=== PATIENT | male | born 1960 | race Caucasian/White ===

== ENCOUNTER 2017-07-02 21:21 | Inpatient (IN) | payer OTHER ==
[~2017-07-02] VITALS: Ht 177.8 cm; Wt 100.8 kg
[~2017-07-02 21:21] MED LIST: ALBUTEROL INH; ALPR1TAB2 PO; CLOP1TAB15 PO; DIAZ-165 PO; EPP3/2 IM; LEVAAER2 INH; LOSA50TA6 PO; OMEP40CA41 PO; OXYC-609 PO; SUMA100T16 PO; ZOLP10TA PO
[2017-07-02] MEDS ORDERED: SODIUM CHLORIDE 0.9% 1000ML 1,000 ML IV SCH (21:26)
[2017-07-02 21:39] LABS: BASO % 0.5 %; BASO ABS # 0.03 K/uL (0-0.2); COMPLETE YES; EOS % 1.2 %; HEMATOCRIT 46.9 % (42-52); IG% 0.3 %; LYMPH % 30.2 %; LYMPH ABS # 1.73 K/uL (1.2-3.4); MEAN CELL VOLUME 95.7 fL (80-100); MEAN CORPUSCULAR HEMOGLOBIN 34.1 pg (25-34); MEAN CORPUSCULAR HGB CONC 35.6 g/dl (32-36); MEAN PLATELET VOLUME 9.3 fL (7.4-10.4); MONO % 7.9 %; NEUT % 59.9 %; PLATELET COUNT 260 K/uL (130-400); WHITE BLOOD COUNT 5.72 K/uL (4.8-10.8)
--- NOTE | 2017-07-02 21:41 | DIAGNOSTIC IMAGING REPORT ---
CT HEAD WITHOUT CONTRAST (CT) CLINICAL HISTORY: Acute stroke. COMPARISON STUDY: 12/24/2015 TECHNIQUE: Axial CT of the brain is performed from the vertex to the skull base. IV contrast was not administered for this examination. A dose lowering technique was utilized adhering to the principles of ALARA. CT DOSE: 823.94 mGycm FINDINGS: No intra or extra-axial mass lesions are visualized. There is no CT evidence of acute cortical infarction. There is no evidence of midline shift. There is no acute hemorrhage. No calvarial fractures are visualized. There are patchy white matter hypodensities likely on a small vessel basis. There is no evidence of pathologic ventricular dilatation. There is no evidence of acute sinusitis IMPRESSION: No acute intracranial findings Electronically signed by: Emiliano Barros M.D. 07/02/2017 9:39 PM Dictated Date/Time: 07/02/2017 9:38 PM
[2017-07-02] MEDS ORDERED: PANT40TA PO (21:45)
[2017-07-02] MEDS ORDERED: VNTHFA/IN INH (21:45)
[2017-07-02] MEDS ORDERED: OXYC1TAB3 PO (21:45)
[2017-07-02 21:46] LABS: ISTAT CREATININE 1.4 mg/dl (0.6-1.3); ISTAT HEMOGLOBIN 16.3 g/dl (14.0-18.0); ISTAT IONIZED CALCIUM 1.12 mmol/l (1.12-1.32)
[2017-07-02 21:50] LABS: INR 0.9 (0.9-1.1); PROTHROMBIN TIME (PATIENT) 10.1 SECONDS (9.0-12.0)
--- NOTE | 2017-07-02 21:53 | DIAGNOSTIC IMAGING REPORT ---
CHEST ONE VIEW PORTABLE CLINICAL HISTORY: Stroke COMPARISON STUDY: 12/24/2015 FINDINGS: The cardiac and mediastinal contours remain stable. There is mild chronic interstitial thickening. There is no failure. There is no lobar consolidation. There is stable prominence of the right paratracheal soft tissues.[ IMPRESSION: Stable mild prominence of the right paratracheal soft tissues. No evidence of acute parenchymal consolidation. No evidence of failure. Electronically signed by: Emiliano Barros M.D. 07/02/2017 9:52 PM Dictated Date/Time: 07/02/2017 9:51 PM
[2017-07-02 22:12] LABS: BLOOD UREA NITROGEN 11 mg/dl (7-18); BUN/CREATININE RATIO 9.4 (10-20); CARBON DIOXIDE 27 mmol/L (21-32); CHLORIDE 100 mmol/L (98-107); POTASSIUM 3.7 mmol/L (3.5-5.1); SODIUM 137 mmol/L (136-145)
[2017-07-02 22:32] LABS: GLUCOSE 125 mg/dl (70-99)
[2017-07-02] MEDS ORDERED: MoRPHine SULFATE 10 MG/ML CARP/VIAL IV STA (22:49)
[2017-07-02] MEDS ORDERED: ONDANSETRON INJ 2 MG/ML 2 ML VIAL IV STA (22:49)
[2017-07-02 23:14] LABS: MAGNESIUM 2.2 mg/dl (1.8-2.4)
--- NOTE | 2017-07-03 00:51 | EMERGENCY ROOM VISIT NOTE ---
History Report prepared by Efren: Kelly Gan Under the Supervision of: Dr. Marcelo Acevedo D.O. First contact with patient: 21:23 Chief Complaint: STROKE SYMPTOMS Stated Complaint: STROKE SX History of Present Illness The patient is a 56 year old male who presents to the Emergency Room with complaints of possible stroke symptoms. He is accompanied by his . His reports she was making dinner this evening around 1949 when the patient told her he didn't feel well and could not eat. She left the house briefly to take their son dinner a few blocks away. When she returned home, around 2029, the patient was sitting in an arm chair with his eyes open. He started tapping the arm chair to get her attention, so she told him she was going to call an ambulance to bring him to [facility], but he refused and asked her to take him here to [facility]. The patient's reports he has a history of a previous CVA and takes daily blood thinners. His neurologist is Dr. Narayan with [facility]. The patient is currently complaining of left sided weakness. He does complain of a headache to staff. Source of History: patient, spouse/significant other () Onset: 1949 today Position: other (global) Timing: constant Associated Symptoms: + weakness (left sided weakness), No fevers, No headache, No chest pain, No SOB, No nausea, No vomiting, No melena, No diarrhea , No urinary symptoms Review of Systems See HPI for pertinent positives & negatives. A total of 10 systems reviewed and were otherwise negative. Past Medical & Surgical Medical Problems: (1) Asthma (2) CVA (cerebral vascular accident) (3) Degenerative disc disease (4) Hypertension Surgical Problems: (1) History of cholecystectomy (2) Previous back surgery Family History Cancer FH: heart disease FHx: gallbladder disease Hypertension Kidney disease Kidney stones Social History Smoking Status: Never Smoker Alcohol Use: occasionally Drug Use: none Marital Status: Housing Status: lives with significant other Occupation Status: employed Current/Historical Medications Scheduled Clopidogrel (Plavix), 75 MG PO DAILY Losartan Potassium (Cozaar), 50 MG PO DAILY Pantoprazole (Protonix), 40 MG PO DAILY Scheduled PRN Albuterol Hfa (Ventolin Hfa), 1 PUFF INH Q4 PRN for Shortness of Breath Alprazolam (Xanax), 1 MG PO TID PRN for Anxiety Diazepam (Valium), 5 MG PO Q6H PRN for Neck Pain Epinephrine (Epipen), 0.3 MG IM UD PRN for ALLERGIC REACTION Oxycodone Immediate Rel Tab (Roxicodone Ir), 5 MG PO Q8 PRN for Pain Sumatriptan Succinate (Imitrex), 100 MG PO UD PRN for Migraine Zolpidem Tartrate (Ambien), 10 MG PO HS PRN for Sleep Allergies Coded Allergies: Aspirin (Verified Allergy, Severe, ANAPHYLAXIS, 12/24/15) BEE STING (Verified Allergy, Severe, ANAPHYLAXIS, 12/24/15) Naproxen (Verified Allergy, Severe, ANAPHYLAXIS, 12/24/15) Physical Exam Vital Signs Date Time Temp Pulse Resp B/P (MAP) Pulse Ox O2 Delivery O2 Flow Rate FiO2 07/03/17 00:29 99 20 142/89 94 Room Air 07/02/17 23:14 106 20 147/106 95 Room Air 07/02/17 22:41 107 24 158/105 95 07/02/17 22:32 165/108 07/02/17 22:31 110 30 97 07/02/17 22:21 110 15 152/118 96 07/02/17 22:11 121 24 177/131 96 07/02/17 22:01 121 18 183/124 97 07/02/17 21:51 105 21 158/110 96 Room Air 07/02/17 21:49 104 07/02/17 21:47 37.3 105 20 164/101 97 Room Air 07/02/17 21:44 155/107 07/02/17 21:41 105 07/02/17 21:23 164/109 Physical Exam GENERAL: Patient is sitting up in bed, not talking, intermittently grunting, disheveled. EYE EXAM: normal conjunctiva, PERRL and EOM's intact OROPHARYNX: Tongue deviates to the right, no exudate, no erythema, lips, buccal mucosa, and tongue normal and mucous membranes are moist NECK: supple, no nuchal rigidity, no adenopathy, non-tender LUNGS: Clear to auscultation. Normal chest wall mechanics HEART: no murmurs, S1 normal and S2 normal ABDOMEN: abdomen soft, non-tender, normo-active bowel sounds, no masses, no rebound or guarding. BACK: Back is symmetrical on inspection and there is no deformity, no midline tenderness, no CVA tenderness. SKIN: no rashes and no bruising UPPER EXTREMITIES: upper extremities are grossly normal. LOWER EXTREMITIES: No pitting edema. NEURO EXAM: Patient is sitting up in bed, aphasic, tongue deviates to the right , does not smile, intermittent faint movement of the left upper extremity, will not move left lower extremity. No deficit in the right upper or right lower extremity. Medical Decision & Procedures ER Provider Diagnostic Interpretation: Radiology results as stated below per my review and the radiologist's interpretation: CHEST ONE VIEW PORTABLE CLINICAL HISTORY: Stroke COMPARISON STUDY: 12/24/2015 FINDINGS: The cardiac and mediastinal contours remain stable. There is mild chronic interstitial thickening. There is no failure. There is no lobar consolidation. There is stable prominence of the right paratracheal soft tissues. IMPRESSION: Stable mild prominence of the right paratracheal soft tissues. No evidence of acute parenchymal consolidation. No evidence of failure. Electronically signed by: Emiliano Barros M.D. 07/02/2017 9:[address] HEAD WITHOUT CONTRAST (CT) CLINICAL HISTORY: Acute stroke. COMPARISON STUDY: 12/24/2015 TECHNIQUE: Axial CT of the brain is performed from the vertex to the skull base. IV contrast was not administered for this examination. A dose lowering technique was utilized adhering to the principles of ALARA. CT DOSE: 823.94 mGycm FINDINGS: No intra or extra-axial mass lesions are visualized. There is no CT evidence of acute cortical infarction. There is no evidence of midline shift. There is no acute hemorrhage. No calvarial fractures are visualized. There are patchy white matter hypodensities likely on a small vessel basis. There is no evidence of pathologic ventricular dilatation. There is no evidence of acute sinusitis IMPRESSION: No acute intracranial findings Electronically signed by: Emiliano Barros M.D. 07/02/2017 9:39 PM Laboratory Results 07/02/17 21:30 Red Blood Count 4.90, Mean Corpuscular Volume 95.7, Mean Corpuscular Hemoglobin 34.1, Mean Corpuscular Hemoglobin Concent 35.6, Mean Platelet Volume 9.3, Neutrophils (%) (Auto) 59.9, Lymphocytes (%) (Auto) 30.2, Monocytes (%) (Auto) 7.9, Eosinophils (%) (Auto) 1.2, Basophils (%) (Auto) 0.5, Neutrophils # (Auto) 3.42, Lymphocytes # (Auto) 1.73, Monocytes # (Auto) 0.45, Eosinophils # (Auto) 0.07, Basophils # (Auto) 0.03 07/02/17 21:30 Test 07/02/17 21:30 07/02/17 21:33 07/02/17 21:42 White Blood Count 5.72 K/uL (4.8-10.8) Red Blood Count 4.90 M/uL (4.7-6.1) Hemoglobin 16.7 g/dL (14.0-18.0) Hematocrit 46.9 % (42-52) Mean Corpuscular Volume 95.7 fL (80-100) Mean Corpuscular Hemoglobin 34.1 pg (25-34) Mean Corpuscular Hemoglobin Concent 35.6 g/dl (32-36) Platelet Count 260 K/uL (130-400) Mean Platelet Volume 9.3 fL (7.4-10.4) Neutrophils (%) (Auto) 59.9 % Lymphocytes (%) (Auto) 30.2 % Monocytes (%) (Auto) 7.9 % Eosinophils (%) (Auto) 1.2 % Basophils (%) (Auto) 0.5 % Neutrophils # (Auto) 3.42 K/uL (1.4-6.5) Lymphocytes # (Auto) 1.73 K/uL (1.2-3.4) Monocytes # (Auto) 0.45 K/uL (0.11-0.59) Eosinophils # (Auto) 0.07 K/uL (0-0.5) Basophils # (Auto) 0.03 K/uL (0-0.2) RDW Standard Deviation 42.4 fL (36.4-46.3) RDW Coefficient of Variation 12.2 % (11.5-14.5) Immature Granulocyte % (Auto) 0.3 % Immature Granulocyte # (Auto) 0.02 K/uL (0.00-0.02) Prothrombin Time 10.1 SECONDS (9.0-12.0) Prothromb Time International Ratio 0.9 (0.9-1.1) Activated Partial Thromboplast Time 25.0 SECONDS (21.0-31.0) Partial Thromboplastin Ratio 1.0 Estimated GFR () 77.9 Estimated GFR (Non- 67.2 BUN/Creatinine Ratio 9.4 (10-20) Calcium Level 9.0 mg/dl (8.5-10.1) Magnesium Level 2.2 mg/dl (1.8-2.4) Total Creatine Kinase 91 U/L (39-308) Creatine Kinase MB < 0.5 ng/ml (0.5-3.6) Creatine Kinase MB Ratio (0-3.0) Troponin I < 0.015 ng/ml (0-0.045) Bedside Hemoglobin 16.3 g/dl (14.0-18.0) Bedside Hematocrit 48 % (42-52) Bedside Sodium 139 mEq/L (135-144) Bedside Potassium 3.7 mEq/L (3.3-5.0) Bedside Chloride 100 mEq/L (101-112) Bedside Total CO2 27 mEq/l (24-31) Anion Gap 17.0 mmol/L (16-25) Bedside Blood Urea Nitrogen 12 mg/dl (7-18) Bedside Creatinine 1.4 mg/dl (0.6-1.3) Bedside Glucose (other) 116 mg/dl (70-99) Bedside Ionized Calcium (Obi) 1.12 mmol/l (1.12-1.32) Bedside Prothrombin Time INR 0.9 (0.9-1.1) Laboratory results per my review. Medications Administered Medications (Trade) Dose Ordered Sig/Andie Route Start Time Stop Time Status Last Admin Dose Admin Sodium Chloride 1,000 ml @ 50 mls/hr Q20H IV 07/02/17 21:26 08/01/17 21:25 07/02/17 21:10 50 MLS/HR Morphine Sulfate (MoRPHine SULFATE INJ) 6 mg NOW STAT IV 07/02/17 22:49 07/02/17 22:51 DC 07/02/17 23:01 6 MG Ondansetron HCl (Zofran Inj) 4 mg NOW STAT IV 07/02/17 22:49 07/02/17 22:51 DC 07/02/17 23:00 4 MG ECG Indication: weakness Rate (beats per minute): 105 Rhythm: sinus tachycardia Findings: left axis deviation, no ectopy ED Course ED COURSE: Vital signs were reviewed and showed the patient is hypertensive. The patients medical record was reviewed The above diagnostic studies were performed and reviewed. ED treatments and interventions as stated above. 2122: The patient was evaluated in room B1. A complete history and physical examination was performed. 2126: NSS 1000 ml @ 50 mls/hr IV. 2145: I discussed the patients case with Dr. Crain, [facility] Neurology. The patient will be further evaluated. 2215: The patient has refused TPA. 2237: I reevaluated the patient. Dr. Crain is still evaluating him. 2247: I discussed the patients case with Dr. Crain again. He states the patient refuses TPA and he recommends he be evaluated by the hospital medicine team for a stroke workup. 2249: Zofran 4 mg IV, Morphine Sulfate 6 mg IV. 2251: Upon reevaluation, the patient is texting on his phone. I discussed my findings with the patient and he and his understand and agree with the treatment plan. 2255: I discussed the patients case with Dr. Cruz, [facility] Hospitalist. The patient will be further evaluated. Based on the patients age, coexisting illnesses, exam and lab findings the decision to treat as an inpatient was made. The patient remained stable while under my care. The patient will be evaluated for further management. Medical Decision Differential Diagnosis includes but is not limited to ischemic Stroke, hemorrhagic stroke, bells palsy, mass, neoplasm, migraine headache, seizure, subarachnoid hemorrhage, TIA, and transient global amnesia. Patient is a 56-year-old male that presents to ER with a left-sided deficit which started at 7:50 PM tonight. He is unable to move his left side or talk. Tongue deviates to the right. No deficit on the right side. Patient is difficult to communicate with. CT head was performed. Stroke alert was called. Discussed with [place] neurology who evaluated the patient. They recommend TPA but the patient declined. CBC, BMP and troponin was unremarkable. INR was normal. CT head along with chest x-ray was unremarkable. Blood pressure trended down without intervention. He was given fluids. He is on Plavix. No aspirin due to allergy. Patient was admitted to internal medicine with a stroke. Medication Reconcilliation Current Medication List: was personally reviewed by me Blood Pressure Screening Patient's blood pressure: Elevated blood pressure Blood pressure disposition: Elevated BP felt to be situational Consults Time Called: 2139 Consulting Physician: Dr. Crain Returned Call: 2144 I discussed the patients case with Dr. Crain, [facility] Neurology. The patient will be further evaluated. Additional Consults: Time Called: 2249 Consulted Physician: [facility] Hospitalist Returned Call: 2254 Additional Comments: I [facility] the [facility] The patient will be further evaluated. Impression Primary Impression: CVA (cerebral vascular accident) Additional Impression: Headache Scribe Attestation The scribe's documentation has been prepared under my direction and personally reviewed by me in its entirety. I confirm that the note above accurately reflects all work, treatment, procedures, and medical decision making performed by me. Departure Information Dispostion Being Evaluated By Hospitalist Referrals Josh Alvarenga D.O. (PCP) Patient Instructions My [facility] Problem Qualifiers Primary Impression: CVA (cerebral vascular accident) CVA mechanism: unspecified Qualified Codes: I63.9 - Cerebral infarction, unspecified Additional Impression: Headache Headache type: unspecified Headache chronicity pattern: unspecified pattern Intractability: not intractable Qualified Codes: R51 - Headache
[2017-07-03 01:12] LABS: URINE APPEARANCE CLEAR (CLEAR); URINE BILIRUBIN NEG (NEG); URINE COLOR YELLOW; URINE NITRITE NEG (NEG); URINE PH 5.5 (4.5-7.5); URINE SPECIFIC GRAVITY 1.016 (1.000-1.030); UROBILINOGEN NEG (NEG); ZZUR CULT IF INDIC CLEAN CATCH NO
[2017-07-03 01:14] LABS: MANUAL MICROSCOPIC REQUIRED? NO; REVIEW REQ? NO
[2017-07-03] MEDS ORDERED: ACETAMINOPHEN 325 MG TAB PO PRN (01:15)
[2017-07-03] MEDS ORDERED: DIAZEPAM 5MG TAB PO PRN (01:15)
[2017-07-03] MEDS ORDERED: OXYCODONE HCL IR 5 MG TAB (IMMEDIATE RELEASE) PO PRN ×2 (01:15)
[2017-07-03] MEDS ORDERED: MoRPHine SULFATE 2 MG/ML CARP IV PRN (01:15)
[2017-07-03] MEDS ORDERED: LORAZEPAM 2 MG/ML 1 ML VIAL IV PRN (01:15)
[2017-07-03] MEDS ORDERED: ONDANSETRON INJ 2 MG/ML 2 ML VIAL IV PRN (01:15)
[2017-07-03] MEDS ORDERED: ZOLPIDEM TARTRATE 10 MG TAB PO PRN (01:15)
[2017-07-03] MEDS ORDERED: ALPRAZOLAM 0.5 MG TAB PO PRN (01:15)
[2017-07-03] MEDS ORDERED: NITROGLYCERIN 0.4 MG SL PER TAB CHARGE SL PRN (01:15)
[2017-07-03] MEDS ORDERED: ACETAMINOPHEN IV 650 MG in EMPTY BAG 0 ML IV PRN (01:15)
[2017-07-03] MEDS ORDERED: PHARMACIST DISCHARGE MED REC CONSULT PRN (01:15)
[2017-07-03 01:33] LABS: BENZODIAZEPINE, URINE POS (NEG); COCAINE,URINE NEG (NEG); PHENCYCLIDINE, URINE NEG (NEG)
[2017-07-03] MEDS ORDERED: OXYCODONE HCL IR 5 MG TAB (IMMEDIATE RELEASE) PO ONE (02:00)
[2017-07-03 02:07] VITALS: BP 132/82; PULSE 93; TEMP 36.9; O2SAT 96; Ht 177.8 cm; Wt 100.8 kg
[2017-07-03] MEDS ORDERED: LORAZEPAM INJ 0.5 MG in SYRINGE 0.75 ML IV PRN (02:15)
[2017-07-03] MEDS ORDERED: NSS + 20MEQ KCL 1000ML 1,000 ML IV ONE (02:30)
[2017-07-03] MEDS: MoRPHine SULFATE 2 MG/ML CARP IV PRN ×2 (02:39→08:43)
[2017-07-03 05:08] VITALS: BP 141/96; PULSE 89; TEMP 37; O2SAT 94
[2017-07-03] MEDS ORDERED: ENOXAPARIN 40 MG/0.4 ML SYR SC SCH (06:00)
[2017-07-03 07:15] LABS: BASO % 0.4 %; BASO ABS # 0.02 K/uL (0-0.2); COMPLETE YES; EOS % 1.9 %; HEMATOCRIT 43.6 % (42-52); IG% 0.4 %; LYMPH % 32.7 %; LYMPH ABS # 1.76 K/uL (1.2-3.4); MEAN CELL VOLUME 96.7 fL (80-100); MEAN CORPUSCULAR HEMOGLOBIN 33.3 pg (25-34); MEAN CORPUSCULAR HGB CONC 34.4 g/dl (32-36); MEAN PLATELET VOLUME 9.6 fL (7.4-10.4); MONO % 8.4 %; NEUT % 56.2 %; PLATELET COUNT 231 K/uL (130-400); RED BLOOD COUNT 4.51 M/uL (4.7-6.1); WHITE BLOOD COUNT 5.38 K/uL (4.8-10.8)
--- NOTE | 2017-07-03 07:21 | HISTORY & PHYSICAL EXAMINATION ---
DATE OF ADMISSION: 07/03/2017 PRIMARY CARE PHYSICIAN: Dr. Alvarenga. CHIEF COMPLAINT: Left-sided weakness, aphasia. HISTORY OF PRESENT ILLNESS: History is obtained from the patient, patient's , and records. Medical history is significant for CVA, hypertension, chronic pain, migraine, anxiety, prostate cancer status post surgery. Recent confinement last September 2015 for acute CVA. Patient presented with left-sided weakness. Patient was discharged on Plavix. CT head on discharge later amended left frontal cortical infarct old. Last night around dinner time, the patient did not feel well. Patient was noted to have drooping of the face and left-sided weakness, right- sided headache symptoms too, achy, similar to migraine symptoms. Patient was noted to be aphasic, grunting as per . Episode similar to 2015 events. Patient compliant with the home meds. Patient was brought to Emergency Room. Stroke Alert called. Improving R arm strength. MEDICAL HISTORY: As above. [place] [facility] [place] headache symptoms. Last March 2017, the patient underwent nerve block by Pain Management w/c actually worsened his pain. SURGERIES: Cholecystectomy, back surgery, urologic procedures. HOME MEDICATIONS: Include OxyIR, Protonix, Imitrex, Ambien, Ventolin, Xanax, Plavix, Valium, EpiPen, losartan. ALLERGIES: TO BEE STING, ASPIRIN, NAPROXEN. FAMILY HISTORY: Heart disease, stroke. PERSONAL AND SOCIAL HISTORY: Nonsmoker, occasional alcohol intake. The patient is disabled. REVIEW OF SYSTEMS: Cannot be fully obtained due to aphasia. PHYSICAL EXAMINATION: VITAL SIGNS: Blood pressure was noted to be 164/109, pulse rate 110, RR 15, temperature 37.3, sats 98RA GENERAL: Somewhat anxious, obese, aphasic. SKIN: Normal color. HEENT: [place] palpebral conjunctivae. Dry mucosa. Subtle nasolabial fold flattening on the left NECK: Short neck. LUNGS: Decreased breath sounds. HEART: Regular rate and rhythm. ABDOMEN: Some distention. NT EXTREMITIES: No edema, no tenderness NEUROLOGIC: No gross focality, except for mild facial asymmetry, decreased strength on the left. Strength on the left is about 2/5. Gait and stance were not assessed. LABORATORY DATA: Hemoglobin was 16.7, white cell count 5.7, platelets 260. Sodium was noted to be 137, potassium 3.7, chloride 100, CO2 27, BUN 11, creatinine 1.2, glucose 125. IMAGING DATA: CT of the head showed no acute intracranial findings. Chest x-ray no evidence of failure. EKG as per my interpretation normal sinus rhythm, no ischemia ASSESSMENT: 1. Left-sided weakness w headache. Recurrent symptoms Currently improving neurologic deficits. TIA versus complicated migraine. hx old CVA as per records, on Plavix hx migraine on meds 2. Hypertension, elevated secondary to above. 3. Prostate cancer sp surgery. PLAN: PCU. Neuro checks Continue Plavix. MRI/MRA of the brain. Further management pending MRI results. Neurology consult. RE left-sided weakness with headache symptoms Permissive hypertension until new stroke ruled out. PT, OT eval. DVT prophylaxis, Lovenox subQ. Full code. MTDD
[2017-07-03 07:26] VITALS: BP 143/90; PULSE 78; TEMP 36.8; O2SAT 96
[2017-07-03 07:42] LABS: BUN/CREATININE RATIO 11.6 (10-20); CALCIUM 8.3 mg/dl (8.5-10.1)
[2017-07-03 07:45] LABS: CHOLESTEROL/HDL RATIO 3.9
[2017-07-03] MEDS ORDERED: PANTOprazole SOD 40 MG TAB PO SCH (09:00)
[2017-07-03] MEDS ORDERED: CLOPIDOGREL BISULFATE 75 MG TAB PO SCH (09:00)
--- NOTE | 2017-07-03 09:40 | DIAGNOSTIC IMAGING REPORT ---
MRA HEAD WITHOUT CONTRAST CLINICAL HISTORY: 56 years-old Male presenting with stroke like symptoms, severe headache, unable to talk, recent falls, stroke 2 years ago. TECHNIQUE: MR angiography of the head was performed without the use of intravenous contrast using 3-D [id number] technique. 3-D volumetric and/or maximum intensity projection (MIP) images were subsequently reconstructed for review. IV contrast: None.. COMPARISON: CT head from 07/02/2017 and MRI brain from 09/22/2015. FINDINGS: Anterior circulation, including the intracranial portions of the bilateral internal carotid arteries and anterior and middle cerebral arteries, patent. Anterior communicating artery patent. Posterior circulation demonstrates codominant vertebral arteries. Basilar and bilateral superior cerebellar and posterior cerebral arteries patent. Right posterior communicating artery patent. Left posterior commuting artery hypoplastic or aplastic. No evidence of aneurysm, focal stenosis, or occlusion. IMPRESSION: 1. No significant stenosis, aneurysm, or focal vessel occlusion. Electronically signed by: Mark Bryant M.D. 07/03/2017 9:39 AM Dictated Date/Time: 07/03/2017 9:34 AM
--- NOTE | 2017-07-03 10:05 | DIAGNOSTIC IMAGING REPORT ---
BRAIN WITHOUT CONTRAST CLINICAL HISTORY: 56 years-old Male presenting with stroke. TECHNIQUE: Multisequence, multiplanar MR imaging of the brain was performed without the use of intravenous contrast. IV contrast: None. COMPARISON: 09/22/2015. FINDINGS: Ventricles and sulci normal in size. Periventricular and subcortical white matter T2/FLAIR hyperintensity, nonspecific but likely indicative of chronic small vessel ischemic change. No mass effect or midline shift. No restricted diffusion to suggest acute ischemia. No hemorrhage. No extra-axial fluid collection. T2 skull base flow voids preserved. Bone marrow signal intensity within the calvarium within normal limits. IMPRESSION: No acute intracranial abnormality. Electronically signed by: aMrk Bryant M.D. 07/03/2017 10:04 AM Dictated Date/Time: 07/03/2017 10:01 AM
[2017-07-03 10:58] VITALS: BP 130/92; PULSE 86; TEMP 37; O2SAT 96
--- NOTE | 2017-07-03 13:58 | DIAGNOSTIC IMAGING REPORT ---
CAROTID DOPPLER NECK ART CLINICAL HISTORY: 56 years-old Male presenting with stroke like symptoms, numbness on the left side. TECHNIQUE: Real-time grayscale and color and spectral Doppler ultrasound imaging of the bilateral carotid arteries was performed. NASCET criteria was used in evaluating this study. COMPARISON: 09/21/2015. FINDINGS: Right: Common carotid: Patent. Peak systolic velocity 72 cm/s. Internal carotid artery: Patent. Peak systolic velocity 80 cm/s. External carotid artery: Patent. Peak systolic velocity 70 cm/s. Systolic ratio: 1.1. Left: Common carotid: Patent. Peak systolic velocity 71 cm/s. Internal carotid artery: Patent. Peak systolic velocity 82 cm/s. External carotid artery: Patent. Peak systolic velocity 85 cm/s. Systolic ratio: 1.1. Bilateral antegrade flow within the vertebral arteries. Reference ranges: Stenosis measurements are compared to reference velocity parameters. Normal ICA peak systolic velocity less than 125 cm/s. Normal ICA peak systolic velocity to common carotid artery velocity ratio is less than 2: less than 2 equates to less than 50% stenosis, 2-4 equates to 50-69% stenosis, greater than 4 equates to greater than or equal to 70% stenosis. Normal ICA end-diastolic velocity less than 40. Blood pressure Brachial: Right: 143/90 mmHg, Left: 142/109 mmHg. IMPRESSION: No hemodynamically significant stenosis seen within the carotid arteries. Electronically signed by: Mark Bryant M.D. 07/03/2017 1:56 PM Dictated Date/Time: 07/03/2017 1:55 PM
--- NOTE | 2017-07-03 15:03 | Progress Note ---
Medicine Progress Note Date & Time of Visit: Jul 03, 2017 at 14:41. Subjective Pt was seen and examined Sitting in bed with no distress Pt is very emotional and anxious Pt said that his symptoms improved Denies any chest pain, palpitation, dizziness and sob Objective Last 8 Hrs Date Time Temp Pulse Resp B/P (MAP) Pulse Ox O2 Delivery O2 Flow Rate FiO2 07/03/17 12:00 Room Air 07/03/17 10:58 37.0 86 18 130/92 (105) 96 Room Air 07/03/17 08:00 Room Air 07/03/17 07:26 36.8 78 18 143/90 (107) 96 Room Air Physical Exam: General- No acute distress Head- atraumatic Eyes- PERRL, EOMI ENT- oropharynx clear Neck- supple, no JVD Lungs- clear to auscultation Heart- regular rhythm; no murmur Abdomen- normal bowel sounds, soft Extremities-no calf tenderness Neuro- alert, oriented x 3; PERRL, EOMI; no facial palsy; decrease strength in the left side Skin- warm & dry Laboratory Results: Last 24 Hours Test 07/02/17 21:30 07/02/17 21:33 07/02/17 21:40 07/02/17 21:42 White Blood Count 5.72 K/uL Red Blood Count 4.90 M/uL Hemoglobin 16.7 g/dL Hematocrit 46.9 % Mean Corpuscular Volume 95.7 fL Mean Corpuscular Hemoglobin 34.1 pg Mean Corpuscular Hemoglobin Concent 35.6 g/dl Platelet Count 260 K/uL Mean Platelet Volume 9.3 fL Neutrophils (%) (Auto) 59.9 % Lymphocytes (%) (Auto) 30.2 % Monocytes (%) (Auto) 7.9 % Eosinophils (%) (Auto) 1.2 % Basophils (%) (Auto) 0.5 % Neutrophils # (Auto) 3.42 K/uL Lymphocytes # (Auto) 1.73 K/uL Monocytes # (Auto) 0.45 K/uL Eosinophils # (Auto) 0.07 K/uL Basophils # (Auto) 0.03 K/uL RDW Standard Deviation 42.4 fL RDW Coefficient of Variation 12.2 % Immature Granulocyte % (Auto) 0.3 % Immature Granulocyte # (Auto) 0.02 K/uL Prothrombin Time 10.1 SECONDS Prothromb Time International Ratio 0.9 Activated Partial Thromboplast Time 25.0 SECONDS Partial Thromboplastin Ratio 1.0 Sodium Level 137 mmol/L Potassium Level 3.7 mmol/L Chloride Level 100 mmol/L Carbon Dioxide Level 27 mmol/L Anion Gap 10.0 mmol/L 17.0 mmol/L Blood Urea Nitrogen 11 mg/dl Creatinine 1.20 mg/dl Estimated GFR () 77.9 Estimated GFR (Non- 67.2 BUN/Creatinine Ratio 9.4 Random Glucose 125 mg/dl Calcium Level 9.0 mg/dl Magnesium Level 2.2 mg/dl Total Creatine Kinase 91 U/L Creatine Kinase MB < 0.5 ng/ml Creatine Kinase MB Ratio Troponin I < 0.015 ng/ml Thyroid Stimulating Hormone (TSH) 2.250 uIu/ml Bedside Hemoglobin 16.3 g/dl Bedside Hematocrit 48 % Bedside Sodium 139 mEq/L Bedside Potassium 3.7 mEq/L Bedside Chloride 100 mEq/L Bedside Total CO2 27 mEq/l Bedside Blood Urea Nitrogen 12 mg/dl Bedside Creatinine 1.4 mg/dl Bedside Glucose (other) 116 mg/dl Bedside Ionized Calcium (Obi) 1.12 mmol/l Bedside Glucose 108 mg/dl Bedside Prothrombin Time INR 0.9 Test 07/02/17 22:38 07/03/17 06:30 Urine Color YELLOW Urine Appearance CLEAR Urine pH 5.5 Urine Specific [place] 1.016 Urine Protein NEG Urine Glucose (UA) NEG Urine Ketones NEG Urine Occult Blood NEG Urine Nitrite NEG Urine Bilirubin NEG Urine Urobilinogen NEG Urine Leukocyte Esterase NEG Urine Opiates Screen POS Urine Methadone, Qualitative NEG Urine Barbiturates NEG Urine Phencyclidine (PCP) Level NEG Ur Amphetamine/Methamphetamine NEG MDMA (Ecstasy) Screen NEG Urine Benzodiazepines Screen POS Urine Cocaine Metabolite NEG Urine Marijuana (THC) NEG White Blood Count 5.38 K/uL Red Blood Count 4.51 M/uL Hemoglobin 15.0 g/dL Hematocrit 43.6 % Mean Corpuscular Volume 96.7 fL Mean Corpuscular Hemoglobin 33.3 pg Mean Corpuscular Hemoglobin Concent 34.4 g/dl Platelet Count 231 K/uL Mean Platelet Volume 9.6 fL Neutrophils (%) (Auto) 56.2 % Lymphocytes (%) (Auto) 32.7 % Monocytes (%) (Auto) 8.4 % Eosinophils (%) (Auto) 1.9 % Basophils (%) (Auto) 0.4 % Neutrophils # (Auto) 3.03 K/uL Lymphocytes # (Auto) 1.76 K/uL Monocytes # (Auto) 0.45 K/uL Eosinophils # (Auto) 0.10 K/uL Basophils # (Auto) 0.02 K/uL RDW Standard Deviation 43.6 fL RDW Coefficient of Variation 12.4 % Immature Granulocyte % (Auto) 0.4 % Immature Granulocyte # (Auto) 0.02 K/uL Sodium Level 140 mmol/L Potassium Level 4.0 mmol/L Chloride Level 105 mmol/L Carbon Dioxide Level 27 mmol/L Anion Gap 8.0 mmol/L Blood Urea Nitrogen 12 mg/dl Creatinine 1.00 mg/dl Est Creatinine Clear Calc Drug Dose 98.1 ml/min Estimated GFR () 97.1 Estimated GFR (Non- 83.8 BUN/Creatinine Ratio 11.6 Random Glucose 105 mg/dl Calcium Level 8.3 mg/dl Triglycerides Level 191 mg/dl Cholesterol Level 178 mg/dl HDL Cholesterol 46 mg/dl LDL Cholesterol, Calculated 94 mg/dl VLDL Cholesterol, Calculated 38 mg/dl Cholesterol/HDL Ratio 3.9 Hepatitis C Antibody Screen NEG Assessment & Plan Stroke like symptoms MRI and MRA of the head were negative for any acute finding CT head showed no acute intracranial findings Carotid Doppler showed no hemodynamically significant stenosis seen within the carotid arteries. case discussed with neuro Dr. Smith, thinks symptoms might be related to migraine Continue home plavix Pt has an appt tomorrow with his neurology Dr. Narayan Clinically improved PT/OT Hx Migraine headache continue sumatriptan prn Hypertension Continue losartan Anxiety On xanax prn Consider to start SSRI as a maintenance med for the anxiety will defer to PCP for the SSRI Prostate cancer sp surgery. Neck Pain On oxycodone/diazepam DVT px on Lovenox subq CODE STATUS FULL CODE Consultants: Neuro Current Inpatient Medications: Current Inpatient Medications Medications (Trade) Dose Ordered Sig/Andie Route Start Time Stop Time Status Last Admin Dose Admin Enoxaparin Sodium (Lovenox Inj) 40 mg Q24H SC 07/03/17 06:00 08/02/17 05:59 Potassium Chloride/Sodium Chloride 1,000 ml @ 75 mls/hr [id number] ONCE IV 07/03/17 02:30 07/03/17 15:49 07/03/17 03:05 75 MLS/HR Acetaminophen (Tylenol Tab) 650 mg Q4H PRN PO 07/03/17 01:15 08/02/17 01:14 Nitroglycerin (Nitrostat Tab) 0.4 mg UD PRN SL 07/03/17 01:15 08/02/17 01:14 Miscellaneous Information (Pharmacist Discharge Med Rec Consult) 1 ea UD PRN N/A 07/03/17 01:15 08/02/17 01:14 Ondansetron HCl (Zofran Inj) 4 mg Q6H PRN IV 07/03/17 01:15 08/02/17 01:14 Lorazepam (Ativan Inj) 0.5 mg Q4H PRN IV 07/03/17 01:15 08/02/17 01:14 Acetaminophen 650 mg/Empty Bag 65 ml @ 260 mls/hr Q6H PRN IV 07/03/17 01:15 08/02/17 01:14 Alprazolam (Xanax Tab) 1 mg TID PRN PO 07/03/17 01:15 08/02/17 01:14 Clopidogrel Bisulfate (plAVix TAB) 75 mg DAILY PO 07/03/17 09:00 08/02/17 08:59 Diazepam (Valium Tab) 5 mg Q6H PRN PO 07/03/17 01:15 08/02/17 01:14 Pantoprazole Sodium (Protonix Tab) 40 mg DAILY PO 07/03/17 09:00 08/02/17 08:59 Zolpidem Tartrate (Ambien Tab) 5 mg HS PRN PO 07/03/17 01:15 08/02/17 01:14 Morphine Sulfate (MoRPHine SULFATE INJ) 2 mg Q6H PRN IV 07/03/17 01:15 07/17/17 01:14 07/03/17 08:43 2 MG Oxycodone HCl (Roxicodone Immediate Rel Tab) 5 mg Q6H PRN PO 07/03/17 01:15 07/17/17 01:14 07/03/17 14:01 5 MG Lorazepam 0.5 mg/ Syringe 1 ml @ 1 mls/min Q4H PRN IV 07/03/17 02:15 08/02/17 02:14
--- NOTE | 2017-07-03 15:12 | NEUROLOGY CONSULTATION ---
DATE OF CONSULTATION: 07/03/2017 REASON FOR CONSULTATION: Left-sided weakness. HISTORY OF PRESENT ILLNESS: The patient is 56-year-old right-handed male with a prior history of a complicated migraine with language dysfunction, hemiparesis and negative imaging. On this background, he was in his usual state of health, watching the [employer] game. He was awakened by his dog who apparently knew something was wrong. The patient then discovered that he was mute and had nearly a left hemiplegia. He does not recall if there are any sensory symptoms. There are no visual symptoms, i.e., blurring or scintillating visual phenomenon. He did have a facial droop. He felt mildly confused. The headache was stabbing, global, occipital with some photophobia. There was not any nausea or vomiting. He did not take a triptan. He has headaches nearly every day and they wax and wane. So it was somewhat unclear to him what the onset of this headache. The neurologic symptoms have lasted at least 9 hours and probably are moving closer to 12 hours at this point. They did markedly improve by the morning and the patient indicates he is back to baseline. He was otherwise well, takes Plavix as an antiplatelet therapy. There was no chest pain, palpitations, shortness of breath, fevers, chills, sweats, weight loss, sore throat, ear pain, medical or dental procedures, chiropractic manipulation of the neck. He had similar symptoms 2 years ago. MRI of the brain was unremarkable, hypercoagulable state workup was unremarkable as well. At that point, he was on Topamax. He is not currently on anything for migraine prophylaxis. I suspect because he has failed multiple agents and he has had what I assume was either trigger point injections or Botox with an exacerbation of symptoms. PAST MEDICAL HISTORY: Notable for nonmetastatic prostate cancer status post resection, not requiring any radiation. He has hypertension, chronic pain. No history of rheumatic fever, murmur, DVT. PAST SURGICAL HISTORY: Cholecystectomy, lumbar surgery, multiple prostate procedures, left shoulder surgery. SOCIAL HISTORY: He rarely drinks, does not smoke. He is on disability. HOME MEDICATIONS: OxyIR, Protonix, Imitrex which he did not take, Ambien, Ventolin, Xanax, Plavix, Valium, EpiPen, losartan. FAMILY HISTORY: Mother had bladder cancer. Father has heart disease and stroke. His electrocardiogram, sinus tachycardia. MRI of the brain unremarkable. MRA, [employer] [place] [place] was normal. LABORATORY DATA: White count, H&H and platelet count were normal. PT, PTT normal. Chemistry profile notable for a creatinine of 1.4, glucose of 116, LDL cholesterol 94, total cholesterol 178. PHYSICAL EXAMINATION: VITAL SIGNS: 37, 86, 18, 130/92, 96%. GENERAL: The patient is awake and alert, intermittently tearful, some mild stuttering speech but no aphasia. No right/left confusion. He is oriented x3. NECK: There are no carotid bruits. HEART: No heart murmurs. HEART: Regular rate and rhythm. LUNGS: Clear. ABDOMEN: Soft and nontender. EXTREMITIES: Peripheral pulses are intact. There is no calf swelling or tenderness. NEUROLOGIC: His pupils are equal, round, reactive to light. The optic nerves are unremarkable. There are normal adair and motility. There is normal facial symmetry. Speech is as above. There is decreased sensation to light touch and temperature on the left. The patient splits a tuning fork on the forehead. Motor: There is some mild weakness in the left arm and left flank with a component of give way. There is a drift without pronation. Rapid alternating movements are about the same. Sensation is diminished to all modalities on the left, but he fails to identify the anesthetic hand on interlocked fingers. His reflexes are symmetric. Toes are downgoing. [id number]-[id number] and [id number] are normal. His gait is unremarkable. IMPRESSION: Complicated migraine versus seizure versus conversion disorder. PLAN: I would recommend a carotid ultrasound and EEG which can be performed as an outpatient per the patient's desire to go home. Dr. Narayan can explore any further prophylaxis. I am not sure what the patient has been on previously for migraine, it may be reasonable to refer him to [facility] for further evaluation and treatment of his migraine. The patient has significant anxiety and if not previously done, a trial with an SSRI may be reasonable. If the patient is discharged, he does have an appointment tomorrow with Dr. Narayan. CANDICE
[2017-07-03 15:17] VITALS: BP 171/103; PULSE 93; TEMP 36.5; O2SAT 94
[2017-07-03 16:49] VITALS: BP 171/103; PULSE 93; TEMP 36.5; O2SAT 94
--- NOTE | 2017-07-03 18:00 | Discharge Instructions ---
Discharge Instructions Date of Service Jul 03, 2017. Admission Reason for Admission: CVA Discharge Discharge Diagnosis / Problem: Stroke like symptoms, Migraine headache, Hypertension, Anxiety, Neck pain Discharge Goals Goal(s): Decrease discomfort, Improve function, Improve disease control Activity Recommendations Activity Limitations: resume your previous activity (as tolerated) . Instructions / Follow-Up Instructions / Follow-Up Follow up with primary care provider Dr. Alvarenga on Jul 06 @ 11:05 am Follow up with Neurology Dr. Narayan tomorrow Fall precaution Current Hospital Diet Patient's current hospital diet: AHA Diet (Heart Healthy) Discharge Diet Recommended Diet: AHA Diet (Heart Healthy) Pending Studies Studies pending at discharge: no Laboratory Results Lipid Panel Test 07/03/17 06:30 Range/Units Triglycerides Level 191 H 0-150 mg/dl Cholesterol Level 178 0-200 mg/dl HDL Cholesterol 46 mg/dl Cholesterol/HDL Ratio 3.9 LDL Cholesterol, Calculated 94 mg/dl Medical Emergencies . Who to Call and When: Medical Emergencies: If at any time you feel your situation is an emergency, please call 911 immediately. . Non-Emergent Contact Non-Emergency issues call your: Primary Care Provider Call Non-Emergent contact if: you have any medication questions . . "Provider Documentation" section prepared by [facility]. . VTE Core Measure Inpt VTE Proph given/why not?: Enoxaparin (Lovenox) [place] Drug Monitoring Program Search Results: no issues identified
--- NOTE | 2017-07-06 00:40 | Discharge Summary ---
Discharge Summary Date of Service Jul 06, 2017. Discharge Summary Admission Date: Jul 03, 2017 at 00:43 Discharge Date: Jul 03, 2017 Discharge Disposition: Home Principal Diagnosis: Stroke like symptoms Secondary Diagnoses/Problems: Migraine headache Hypertension Anxiety Neck pain Procedures: CAROTID DOPPLER NECK ART CLINICAL HISTORY: 56 years-old Male presenting with stroke like symptoms, numbness on the left side. TECHNIQUE: Real-time grayscale and color and spectral Doppler ultrasound imaging of the bilateral carotid arteries was performed. NASCET criteria was used in evaluating this study. COMPARISON: 09/21/2015. FINDINGS: Right: Common carotid: Patent. Peak systolic velocity 72 cm/s. Internal carotid artery: Patent. Peak systolic velocity 80 cm/s. External carotid artery: Patent. Peak systolic velocity 70 cm/s. Systolic ratio: 1.1. Left: Common carotid: Patent. Peak systolic velocity 71 cm/s. Internal carotid artery: Patent. Peak systolic velocity 82 cm/s. External carotid artery: Patent. Peak systolic velocity 85 cm/s. Systolic ratio: 1.1. Bilateral antegrade flow within the vertebral arteries. Reference ranges: Stenosis measurements are compared to reference velocity parameters. Normal ICA peak systolic velocity less than 125 cm/s. Normal ICA peak systolic velocity to common carotid artery velocity ratio is less than 2: less than 2 equates to less than 50% stenosis, 2-4 equates to 50-69% stenosis, greater than 4 equates to greater than or equal to 70% stenosis. Normal ICA end-diastolic velocity less than 40. Blood pressure Brachial: Right: 143/90 mmHg, Left: 142/109 mmHg. IMPRESSION: No hemodynamically significant stenosis seen within the carotid arteries. Electronically signed by: Mark Bryant M.D. 07/03/2017 1:56 PM Dictated Date/Time: 07/03/2017 1:55 PM BRAIN WITHOUT CONTRAST CLINICAL HISTORY: 56 years-old Male presenting with stroke. TECHNIQUE: Multisequence, multiplanar MR imaging of the brain was performed without the use of intravenous contrast. IV contrast: None. COMPARISON: 09/22/2015. FINDINGS: Ventricles and sulci normal in size. Periventricular and subcortical white matter T2/FLAIR hyperintensity, nonspecific but likely indicative of chronic small vessel ischemic change. No mass effect or midline shift. No restricted diffusion to suggest acute ischemia. No hemorrhage. No extra-axial fluid collection. T2 skull base flow voids preserved. Bone marrow signal intensity within the calvarium within normal limits. IMPRESSION: No acute intracranial abnormality. Electronically signed by: Mark Bryant M.D. 07/03/2017 10:04 AM Dictated Date/Time: 07/03/2017 10:01 AM [~ rep ct add3]] MRA HEAD WITHOUT CONTRAST CLINICAL HISTORY: 56 years-old Male presenting with stroke like symptoms, severe headache, unable to talk, recent falls, stroke 2 years ago. TECHNIQUE: MR angiography of the head was performed without the use of intravenous contrast using 3-D [id number] technique. 3-D volumetric and/or maximum intensity projection (MIP) images were subsequently reconstructed for review. IV contrast: None.. COMPARISON: CT head from 07/02/2017 and MRI brain from 09/22/2015. FINDINGS: Anterior circulation, including the intracranial portions of the bilateral internal carotid arteries and anterior and middle cerebral arteries, patent. Anterior communicating artery patent. Posterior circulation demonstrates codominant vertebral arteries. Basilar and bilateral superior cerebellar and posterior cerebral arteries patent. Right posterior communicating artery patent. Left posterior commuting artery hypoplastic or aplastic. No evidence of aneurysm, focal stenosis, or occlusion. IMPRESSION: 1. No significant stenosis, aneurysm, or focal vessel occlusion. Electronically signed by: Mark Bryant M.D. 07/03/2017 9:39 AM Dictated Date/Time: 07/03/2017 9:34 AM [~ rep ct add3]] CT HEAD WITHOUT CONTRAST (CT) CLINICAL HISTORY: Acute stroke. COMPARISON STUDY: 12/24/2015 TECHNIQUE: Axial CT of the brain is performed from the vertex to the skull base. IV contrast was not administered for this examination. A dose lowering technique was utilized adhering to the principles of ALARA. CT DOSE: 823.94 mGycm FINDINGS: No intra or extra-axial mass lesions are visualized. There is no CT evidence of acute cortical infarction. There is no evidence of midline shift. There is no acute hemorrhage. No calvarial fractures are visualized. There are patchy white matter hypodensities likely on a small vessel basis. There is no evidence of pathologic ventricular dilatation. There is no evidence of acute sinusitis IMPRESSION: No acute intracranial findings Electronically signed by: Emiliano Barros M.D. 07/02/2017 9:39 PM Dictated Date/Time: 07/02/2017 9:38 PM CHEST ONE VIEW PORTABLE CLINICAL HISTORY: Stroke COMPARISON STUDY: 12/24/2015 FINDINGS: The cardiac and mediastinal contours remain stable. There is mild chronic interstitial thickening. There is no failure. There is no lobar consolidation. There is stable prominence of the right paratracheal soft tissues.[ IMPRESSION: Stable mild prominence of the right paratracheal soft tissues. No evidence of acute parenchymal consolidation. No evidence of failure. Electronically signed by: Emiliano Barros M.D. 07/02/2017 9:52 PM Dictated Date/Time: 07/02/2017 9:51 PM Consultations: Neuro Medication Reconciliation Continued Medications: Albuterol Hfa (Ventolin Hfa) 200 Puffs/35482 Mcg Aers 1 PUFF INH Q4 PRN for Shortness of Breath, #1 INHALER Alprazolam (Xanax) 1 Mg Tab 1 MG PO TID PRN for Anxiety, TAB Clopidogrel (Plavix) 75 Mg Tab 75 MG PO DAILY, TAB Diazepam (Valium) 5 Mg Tab 5 MG PO Q6H PRN for Neck Pain, TAB Epinephrine (Epipen) 0.3 Mg/0.3 Ml Inj 0.3 MG IM UD PRN for ALLERGIC REACTION Losartan Potassium (Cozaar) 50 Mg Tab 50 MG PO DAILY, TAB Oxycodone Immediate Rel Tab (Roxicodone Ir) 5 Mg Tab 5 MG PO Q8 PRN for Pain, TAB Pantoprazole (Protonix) 40 Mg Tab 40 MG PO DAILY, #30 TAB Sumatriptan Succinate (Imitrex) 100 Mg Tab 100 MG PO UD PRN for Migraine, TAB Zolpidem Tartrate (Ambien) 10 Mg Tab 10 MG PO HS PRN for Sleep, TAB Admission Information HPI (per Admitting provider): CHIEF COMPLAINT: Left-sided weakness, aphasia. HISTORY OF PRESENT ILLNESS: History is obtained from the patient, patient's , and records. Medical history is significant for CVA, hypertension, chronic pain, migraine, anxiety, prostate cancer status post surgery. . Patient presented with left-sided weakness. Patient was discharged on Plavix. CT head on discharge later amended left frontal cortical infarct old. Last night around dinner time, the patient did not feel well. Patient was noted to have drooping of the face and left-sided weakness, right- sided headache symptoms too, achy, similar to migraine symptoms. Patient was noted to be aphasic, grunting as per . Episode similar to 2015 events. Patient compliant with the home meds. Patient was brought to Emergency Room. Stroke Alert called. Improving R arm strength. Physical Exam (per Admitting): PHYSICAL EXAMINATION: VITAL SIGNS: Blood pressure was noted to be 164/109, pulse rate 110, RR 15, temperature 37.3, sats 98RA GENERAL: Somewhat anxious, obese, aphasic. SKIN: Normal color. HEENT: [place] palpebral conjunctivae. Dry mucosa. Subtle nasolabial fold flattening on the left NECK: Short neck. LUNGS: Decreased breath sounds. HEART: Regular rate and rhythm. ABDOMEN: Some distention. NT EXTREMITIES: No edema, no tenderness NEUROLOGIC: No gross focality, except for mild facial asymmetry, decreased strength on the left. Strength on the left is about 2/5. Gait and stance were not assessed. Hospital Course Stroke like symptoms MRI and MRA of the head were negative for any acute finding CT head showed no acute intracranial findings Carotid Doppler showed no hemodynamically significant stenosis seen within the carotid arteries. case discussed with neuro Dr. Smith, thinks symptoms might be related to migraine Continue home plavix Pt has an appt tomorrow with his neurology Dr. Narayan Clinically improved PT/OT Hx Migraine headache continue sumatriptan prn Hypertension Continue losartan Anxiety On xanax prn Consider to start SSRI as a maintenance med for the anxiety will defer to PCP for the SSRI Prostate cancer sp surgery. Neck Pain On oxycodone/diazepam DVT px on Lovenox subq CODE STATUS FULL CODE Total time spent on discharge = 35 minutes This includes examination of the patient, discharge planning, medication reconciliation, and communication with other providers. Discharge Instructions Discharge Instructions Date of Service Jul 03, 2017. Admission Reason for Admission: CVA Discharge Discharge Diagnosis / Problem: Stroke like symptoms, Migraine headache, Hypertension, Anxiety, Neck pain Discharge Goals Goal(s): Decrease discomfort, Improve function, Improve disease control Activity Recommendations Activity Limitations: resume your previous activity (as tolerated) . Instructions / Follow-Up Instructions / Follow-Up Follow up with primary care provider Dr. Alvarenga on Jul 06 @ 11:05 am Follow up with Neurology Dr. Narayan tomorrow Fall precaution Current Hospital Diet Patient's current hospital diet: AHA Diet (Heart Healthy) Discharge Diet Recommended Diet: AHA Diet (Heart Healthy) Pending Studies Studies pending at discharge: no Laboratory Results Lipid Panel Test 07/03/17 06:30 Range/Units Triglycerides Level 191 H 0-150 mg/dl Cholesterol Level 178 0-200 mg/dl HDL Cholesterol 46 mg/dl Cholesterol/HDL Ratio 3.9 LDL Cholesterol, Calculated 94 mg/dl Medical Emergencies . Who to Call and When: Medical Emergencies: If at any time you feel your situation is an emergency, please call 911 immediately. . Non-Emergent Contact Non-Emergency issues call your: Primary Care Provider Call Non-Emergent contact if: you have any medication questions . . "Provider Documentation" section prepared by [facility]. . VTE Core Measure Inpt VTE Proph given/why not?: Enoxaparin (Lovenox)[place] Drug Monitoring Program Search Results: no issues identified Additional Copies To Josh Alvarenga D.O.
[2017-07-06 10:13] LABS: COD UR NEGATIVE NG/ML (CUTOFF=50); HYDROCOD UR NEGATIVE NG/ML (CUTOFF=50); HYDROMOR UR NEGATIVE NG/ML (CUTOFF=50); HYDROXYETHYLFLURAZEPAM CONF NEGATIVE NG/ML (CUTOFF=50); HYDROXYMIDAZOLAM NEGATIVE NG/ML (CUTOFF=50); HYDROXYTRIAZOLAM CONF NEGATIVE NG/ML (CUTOFF=50); MORPHINE UR NEGATIVE NG/ML (CUTOFF=50); NORHYDROCODONE CONF UR NEGATIVE NG/ML (CUTOFF=50); OXYMORPH UR 1150 NG/ML (CUTOFF=50); TEMAZEPAM CONF 180 NG/ML (CUTOFF=50)
== END 2017-07-03 18:33 | disposition home or self-care (01) | DRG 948 ==
LOC: C.EDB 21:22 → C.2T 07-03 00:43 → ENRESERV 07-03 01:08 → C.2T 07-03 01:18
PROVIDERS: ADMIT Internal Medicine; ATTEND Internal Medicine
DX: R53.1 Weakness (principal); R47.01 Aphasia; G43.909 Migraine, unspecified, not intractable, without status migrainosus; J45.909 Unspecified asthma, uncomplicated; Z86.73 Personal history of transient ischemic attack (TIA), and cerebral infarction without residual deficits; I10 Essential (primary) hypertension; G89.29 Other chronic pain; Z85.46 Personal history of malignant neoplasm of prostate; F41.9 Anxiety disorder, unspecified; M54.2 Cervicalgia; Z90.49 Acquired absence of other specified parts of digestive tract; Z80.9 Family history of malignant neoplasm, unspecified; Z82.49 Family history of ischemic heart disease and other diseases of the circulatory system; Z84.1 Family history of disorders of kidney and ureter